=== PATIENT | female | born 1975 | race African-American/Black ===

== ENCOUNTER 2020-03-10 01:24 | Emergency (ER) | payer OTHER ==
[~2020-03-10] VITALS: Ht 167.6 cm; Wt 78.9 kg
[2020-03-10] MEDS ORDERED: FLEXERIL PO (02:54)
[2020-03-10 03:55] VITALS: BP 113/78
== END 2020-03-10 03:55 | disposition home or self-care (01) ==
LOC: ER 01:24
DX: M79.10 Myalgia, unspecified site (principal); F17.210 Nicotine dependence, cigarettes, uncomplicated; Z88.5 Allergy status to narcotic agent; V49.9XXA Car occupant (driver) (passenger) injured in unspecified traffic accident, initial encounter; Y93.89 Activity, other specified; Y92.89 Other specified places as the place of occurrence of the external cause; Y99.8 Other external cause status